=== PATIENT | male | born 1975 | race African-American/Black ===

== ENCOUNTER 2016-06-19 14:45 | Emergency (ER) | payer SELFPAY ==
--- NOTE | 2016-06-19 15:13 | ER Document Report ---
ED Medical Screen (RME) - General Stated Complaint: EYE PAIN Mode of Arrival: Ambulatory Information source: Patient Notes: Patient complains of left eye pain for the past 3 days. Patient states that he frequently works in situations where there is a possibility that something may have gotten into his eye. Patient denies any change in vision. Patient does not wear contact lenses or glasses. Patient reports drainage from eye I have greeted and performed a rapid initial assessment of this patient. A comprehensive ED assessment and evaluation of the patient, analysis of test results and completion of the medical decision making process will be conducted by additional ED providers. TRAVEL OUTSIDE OF THE [place] IN LAST 30 DAYS: No - Related Data Allergies/Adverse Reactions: No Known Allergies Allergy (Verified 06/19/16 15:10) Past Medical History Neurological Medical History: Reports: Hx Migraine Past Surgical History: Reports: Hx Oral Surgery - ALL UPPER TEETH REMOVED - Immunizations Immunizations up to date: Yes Hx Diphtheria, Pertussis, Tetanus Vaccination: Yes - 2010 Physical Exam - Vital signs Vitals: Temp Pulse Resp BP Pulse Ox 98.0 F 76 16 134/75 H 100 06/19/16 14:50 06/19/16 14:50 06/19/16 14:50 06/19/16 14:50 06/19/16 14:50 - HEENT Eyes: Tears Conjunctiva: Purulent discharge Course - Vital Signs Vital signs: Temp Pulse Resp BP Pulse Ox 98.0 F 76 16 134/75 H 100 06/19/16 14:50 06/19/16 14:50 06/19/16 14:50 06/19/16 14:50 06/19/16 14:50
[2016-06-19] MEDS ORDERED: TETRACAINE HCL 0.5% OPH SOLN 2 ML OS ONE (19:36)
[2016-06-19] MEDS ORDERED: ERYTHROMYCIN 0.5% OPH OINTMENT 3.5 GM (ER DISP) OP PRN (19:46)
[2016-06-19] MEDS ORDERED: CEPHALEXIN 500 MG CAPSULE PO ONE (19:46)
--- NOTE | 2016-06-19 19:48 | ER Document Report ---
ED Eye Complaint - General Chief Complaint: Eye Pain Stated Complaint: EYE PAIN Mode of Arrival: Ambulatory TRAVEL OUTSIDE OF THE [place] IN LAST 30 DAYS: No - Related Data Allergies/Adverse Reactions: No Known Allergies Allergy (Verified 06/19/16 15:10) Past Medical History - General Information source: Patient - Social History Smoking Status: Current Every Day Smoker Chew tobacco use (# tins/day): No Frequency of alcohol use: None Drug Abuse: None Family History: Reviewed & Not Pertinent Patient has suicidal ideation: No Patient has homicidal ideation: No Neurological Medical History: Reports: Hx Migraine Renal/ Medical History: Denies: Hx Peritoneal Dialysis Past Surgical History: Reports: Hx Oral Surgery - ALL UPPER TEETH REMOVED - Immunizations Immunizations up to date: Yes Hx Diphtheria, Pertussis, Tetanus Vaccination: Yes - 2010 Physical Exam - Vital signs Vitals: Temp Pulse Resp BP Pulse Ox 98.0 F 76 16 134/75 H 100 06/19/16 14:50 06/19/16 14:50 06/19/16 14:50 06/19/16 14:50 06/19/16 14:50 - HEENT Visual acuity- Right eye: 20/25 Visual acuity- Left eye: 20/25 Visual acuity- Both eyes: 20/20 Corrective lenses worn: No Course - Vital Signs Vital signs: Temp Pulse Resp BP Pulse Ox 98.0 F 76 16 134/75 H 100 06/19/16 14:50 06/19/16 14:50 06/19/16 14:50 06/19/16 14:50 06/19/16 14:50 Discharge - Discharge Clinical Impression: Conjunctivitis Condition: Stable Disposition: HOME, SELF-CARE Instructions: Conjunctivitis ([facility]), Opthalmology Prescriptions: Cephalexin Monohydrate [Keflex 500 mg Capsule] 500 mg PO QID #20 capsule Erythromycin Base [Erythromycin] 1 gm OP QID #1 unit Forms: Return to Work
--- NOTE | 2016-06-19 19:54 | ER Document Report ---
ED Eye Complaint - General Time seen by provider: 19:35 Mode of Arrival: Ambulatory Information source: Patient TRAVEL OUTSIDE OF THE [place] IN LAST 30 DAYS: No - HPI Patient complains to provider of: eye problem Associated symptoms: Other - See above <SELENE CONLEY - Last Filed: 06/20/16 00:50> <ANA LAURA HORN - Last Filed: 06/20/16 02:52> - General Chief Complaint: Eye Problem Stated Complaint: Eye problem Notes: Patient is a 41 year old male who presents to the emergency department complaining of eye problem onset 2-3 days ago. 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 Patient states his left eye is bothering him and complains of discharge and some pain on the eyelid that is aggravated by sweat. Patient denies wearing contacts. Patient requests work note. (SELENE CONLEY) - Related Data Allergies/Adverse Reactions: No Known Allergies Allergy (Verified 06/19/16 15:10) Past Medical History - General Information source: Patient - Social History Smoking Status: Current Every Day Smoker Chew tobacco use (# tins/day): No Frequency of alcohol use: None Drug Abuse: None Family History: Reviewed & Not Pertinent Patient has suicidal ideation: No Patient has homicidal ideation: No Neurological Medical History: Reports: Hx Migraine Past Surgical History: Reports: Hx Oral Surgery - ALL UPPER TEETH REMOVED - Immunizations Immunizations up to date: Yes Hx Diphtheria, Pertussis, Tetanus Vaccination: Yes - 2010 <SELENE CONLEY - Last Filed: 06/20/16 00:50> Review of Systems - Review of Systems Constitutional: No symptoms reported EENT: See HPI, Eye pain, Eye discharge Cardiovascular: No symptoms reported Respiratory: No symptoms reported Gastrointestinal: No symptoms reported Genitourinary: No symptoms reported Male Genitourinary: No symptoms reported Musculoskeletal: No symptoms reported Skin: No symptoms reported Hematologic/Lymphatic: No symptoms reported Neurological/Psychological: No symptoms reported -: Yes All other systems reviewed and negative <SELENE CONLEY - Last Filed: 06/20/16 00:50> Physical Exam - Vital signs Interpretation: Normal - General General appearance: Appears well, Alert - HEENT Head: Normocephalic, Atraumatic Eyes: Normal - no foreign body or fluorescein uptake Conjunctiva: Injected, Purulent discharge - left Visual acuity- Right eye: 20/25 Visual acuity- Left eye: 20/25 Visual acuity- Both eyes: 20/20 Corrective lenses worn: No - Respiratory Respiratory status: No respiratory distress - Extremities General upper extremity: Normal inspection General lower extremity: Normal inspection - Neurological Neuro grossly intact: Yes Cognition: Normal Orientation: AAOx4 Hammond Coma Scale Eye Opening: Spontaneous Hammond Coma Scale Verbal: Oriented Hammond Coma Scale Motor: Obeys Commands Anabell Coma Scale Total: 15 Speech: Normal - Psychological Associated symptoms: Normal affect, Normal mood - Skin Skin Temperature: Warm Skin Moisture: Dry Skin Color: Normal <SELENE CONLEY - Last Filed: 06/20/16 00:50> Course <SELENE CONLEY - Last Filed: 06/20/16 00:50> <ANA LAURA HORN - Last Filed: 06/20/16 02:52> - Re-evaluation Re-evalutation: 06/19/16 Patient with purulent discharge from left eye and injected. No foreign body. Patient will be started on erythromycin ointment and Keflex for some swelling of his upper left eyelid. Patient does not wear contacts. He is instructed to follow-up with ophthalmology return if he has any worsening or concerning symptoms. Vitals are stable. Understands and agrees with plan. Stable for discharge home. (ANA LAURA HORN) - Vital Signs Vital signs: Temp Pulse Resp BP Pulse Ox 98.8 F 52 L 18 125/77 96 06/19/16 20:23 06/19/16 20:23 06/19/16 20:23 06/19/16 20:23 06/19/16 20:23 Procedures - Eye Procedure Left Alcaine Drops Administered: Yes Fluorescein applied: Left Antibiotic Oinment/Drps Admin: Left eye <ANA LAURA HORN - Last Filed: 06/20/16 02:52> Discharge <SELENE CONLEY - Last Filed: 06/20/16 00:50> <ANA LAURA HORN - Last Filed: 06/20/16 02:52> - Discharge Clinical Impression: Conjunctivitis Qualifiers: Conjunctivitis type: unspecified Laterality: left Qualified Code(s): H10.9 - Unspecified conjunctivitis Condition: Stable Disposition: HOME, SELF-CARE Instructions: Conjunctivitis ([facility]), Opthalmology Prescriptions: Cephalexin Monohydrate [Keflex 500 mg Capsule] 500 mg PO QID #20 capsule Erythromycin Base [Erythromycin] 1 gm OP QID #1 unit Forms: Return to Work Scribe Attestation: 06/20/16 02:52 I personally performed the services described in the documentation, reviewed and edited the documentation which was dictated to the scribe in my presence, and it accurately records my words and actions. (ANA LAURA HORN) Scribe Documentation - Scribe Written by Burak:: burak Hui, 06/19/16, 2226 acting as scribe for :: Yamini <SELENE CONLEY - Last Filed: 06/20/16 00:50>
[2016-06-19 20:25] VITALS: BP 125/77
== END 2016-06-19 20:23 | disposition home or self-care (01) ==
LOC: ER 14:45
DX: H10.9 Unspecified conjunctivitis (principal); F17.200 Nicotine dependence, unspecified, uncomplicated
CPT/HCPCS: 99283

== ENCOUNTER 2017-04-18 07:47 | Emergency (ER) | payer OTHER ==
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
[2017-04-18 08:49] VITALS: BP 132/84
== END 2017-04-18 08:49 | disposition home or self-care (01) ==
LOC: ER 07:47
DX: S16.1XXA Strain of muscle, fascia and tendon at neck level, initial encounter (principal); M54.5 Low back pain; M54.9 Dorsalgia, unspecified; M54.2 Cervicalgia; V87.7XXA Person injured in collision between other specified motor vehicles (traffic), initial encounter; F17.210 Nicotine dependence, cigarettes, uncomplicated
CPT/HCPCS: 99283

== ENCOUNTER 2018-06-18 14:38 | Emergency (ER) | payer SELFPAY ==
[2018-06-18] MEDS ORDERED: ACETAMINOPHEN 325 MG TABLET PO ONE (16:07)
[2018-06-18] MEDS ORDERED: ONDANSETRON 4 MG TAB.RAPDIS PO ONE (16:07)
[2018-06-18] MEDS ORDERED: IBUPROFEN 800 MG TABLET PO ONE (16:08)
--- NOTE | 2018-06-18 16:09 | ER Document Report ---
ED Medical Screen (RME) - General Chief Complaint: Fever Stated Complaint: BODY ACHES,FEVER,CHILLS Time Seen by Provider: 06/18/18 16:00 Notes: 43-year-old male patient onset yesterday of fever, frontal headache, chills, body aches, coughing. Did not get a flu shot this year. Also has some epigastric pain. There is no nausea vomiting or diarrhea. He has been taking some aspirin but had not taken Tylenol. I have greeted and performed a rapid initial assessment of this patient. A comprehensive ED assessment and evaluation of the patient, analysis of test results and completion of the medical decision making process will be conducted by additional ED providers. TRAVEL OUTSIDE OF THE [place] IN LAST 30 DAYS: No - Related Data Allergies/Adverse Reactions: No Known Allergies Allergy (Verified 06/18/18 15:57) Past Medical History - Social History Chew tobacco use (# tins/day): No Frequency of alcohol use: None Drug Abuse: None Neurological Medical History: Reports: Hx Migraine Renal/ Medical History: Denies: Hx Peritoneal Dialysis Past Surgical History: Reports: Hx Oral Surgery - Immunizations Immunizations up to date: Yes Hx Diphtheria, Pertussis, Tetanus Vaccination: Yes - 2010 Physical Exam - Vital signs Vitals: Temp Pulse Resp BP Pulse Ox 101.1 F H 111 H 16 163/97 H 100 06/18/18 14:43 06/18/18 14:43 06/18/18 14:43 06/18/18 14:43 06/18/18 14:43 Course - Vital Signs Vital signs: Temp Pulse Resp BP Pulse Ox 101.1 F H 111 H 16 163/97 H 100 06/18/18 14:43 06/18/18 14:43 06/18/18 14:43 06/18/18 14:43 06/18/18 14:43
[2018-06-18 16:46] LABS: ABSOLUTE EOSINOPHILS # (AUTO) 0.1 10^3/uL (0.0-0.6); ABSOLUTE LYMPHOCYTES (AUTO) 0.8 10^3/uL (0.5-4.7); ABSOLUTE MONOCYTES (AUTO) 0.9 10^3/uL (0.1-1.4); ABSOLUTE NEUT (AUTO) 4.3 10^3/uL (1.7-8.2); BASOPHILS % (AUTO) 0.2 % (0-2); EOSINOPHILS % (AUTO) 2.1 % (0-6); HEMATOCRIT 46.9 % (37.9-51.0); HEMOGLOBIN 15.9 g/dL (13.5-17.0); LYMPHOCYTES % (AUTO) 12.9 % (13-45); MEAN CORPUSCULAR HEMOGLOBIN 31.5 pg (27.0-33.4); MEAN CORPUSCULAR HGB CONC 33.9 g/dL (32.0-36.0); MEAN CORPUSCULAR VOLUME 93 fl (80-97); MONOCYTES % (AUTO) 14.3 % (3-13); PLATELET COUNT 205 10^3/uL (150-450); RED BLOOD COUNT 5.05 10^6/uL (4.35-5.55); RED CELL DISTRIBUTION WIDTH 13.5 % (11.5-14.0); SEGMENTED NEUTROPHILS % (AUTO) 70.5 % (42-78); TOTAL CELLS COUNTED % (AUTO) 100 %; WHITE BLOOD COUNT 6.2 10^3/uL (4.0-10.5)
[2018-06-18 16:59] LABS: ALANINE AMINOTRANSFERASE 27 U/L (21-72); ALBUMIN 3.7 g/dL (3.5-5.0); ALKALINE PHOSPHATASE 50 U/L (38-126); ANION GAP 8 (5-19); ASPARTATE AMINO TRANSFERASE 22 U/L (17-59); BILIRUBIN,DIRECT 0.1 mg/dL (0.0-0.4); BILIRUBIN,TOTAL 0.3 mg/dL (0.2-1.3); BLOOD UREA NITROGEN 11 mg/dL (7-20); CALCIUM 9.2 mg/dL (8.4-10.2); CARBON DIOXIDE 27 mmol/L (22-30); CHLORIDE 105 mmol/L (98-107); GLUCOSE 75 mg/dL (75-110); LIPASE 63.6 U/L (23-300)
[2018-06-18 17:05] LABS: A TYPE INFLUENZA AG NEGATIVE (NEGATIVE); B INFLUENZA AG NEGATIVE (NEGATIVE)
--- NOTE | 2018-06-18 17:49 | ER Document Report ---
ED General - General Chief Complaint: Fever Stated Complaint: BODY ACHES,FEVER,CHILLS Time Seen by Provider: 06/18/18 16:00 Mode of Arrival: Ambulatory Information source: Patient Notes: Patient is a 43-year-old male who presents to the emergency department with chief complaints of generalized body aches, fever and sore throat. Patient denies any nausea or vomiting, reports mild epigastric pain that is not currently present. Patient denies any urinary frequency, dysuria or penile discharge. Denies getting a flu shot this year. Patient reports he has no past medical history and does not take any medications daily. TRAVEL OUTSIDE OF THE [place] IN LAST 30 DAYS: No - Related Data Allergies/Adverse Reactions: No Known Allergies Allergy (Verified 06/18/18 15:57) Past Medical History - General Information source: Patient - Social History Smoking Status: Current Every Day Smoker Chew tobacco use (# tins/day): No Frequency of alcohol use: None Drug Abuse: None Family History: Reviewed & Not Pertinent Patient has suicidal ideation: No Patient has homicidal ideation: No Neurological Medical History: Reports: Hx Migraine Renal/ Medical History: Denies: Hx Peritoneal Dialysis Past Surgical History: Reports: Hx Oral Surgery - Immunizations Immunizations up to date: Yes Hx Diphtheria, Pertussis, Tetanus Vaccination: Yes - 2010 Review of Systems - Review of Systems Constitutional: Chills, Fever EENT: Nose congestion Cardiovascular: denies: Chest pain, Palpitations, Syncope, Dizziness Respiratory: No symptoms reported Gastrointestinal: Abdominal pain - Epigastric pain, Nausea. denies: Diarrhea, Vomiting, Constipation Genitourinary: No symptoms reported. denies: Dysuria, Discharge, Frequency, Flank pain Male Genitourinary: No symptoms reported Musculoskeletal: Other - Generalized body aches Skin: No symptoms reported Physical Exam - Vital signs Vitals: Temp Pulse Resp BP Pulse Ox 101.1 F H 111 H 16 163/97 H 100 06/18/18 14:43 06/18/18 14:43 06/18/18 14:43 06/18/18 14:43 06/18/18 14:43 - Notes Notes: PHYSICAL EXAMINATION: GENERAL: Well-appearing, well-nourished and in no acute distress. HEAD: Atraumatic, normocephalic. EYES: Pupils equal round and reactive to light, extraocular movements intact, sclera anicteric, conjunctiva are normal. ENT: Nares patent, oropharynx clear without exudates. Moist mucous membranes. NECK: Normal range of motion, supple without lymphadenopathy LUNGS: Breath sounds clear to auscultation bilaterally and equal. No wheezes rales or rhonchi. HEART: Regular rate and rhythm without murmurs ABDOMEN: Soft, nondistended abdomen. Mild epigastric tenderness. No guarding, no rebound. No masses appreciated. Musculoskeletal: Normal range of motion, no pitting or edema. No cyanosis. NEUROLOGICAL: Cranial nerves grossly intact. Normal speech, normal gait. Norm al sensory, motor exams PSYCH: Normal mood, normal affect. SKIN: Warm, Dry, normal turgor, no rashes or lesions noted. Course - Re-evaluation Re-evalutation: Patient appears well, fever has resolved after administration of Tylenol and ibuprofen. Patient reporting that he is feeling better. Patient's physical examination is unremarkable. Patient was not able to provide a urine sample however he is not having any urinary symptoms and declines to stay any longer to provide one. CBC was unremarkable. CMP was also unremarkable other than mildly elevated creatinine of 1.5, patient has had a history of this same value several years ago. Patient's EKG reveals a sinus rhythm, rate of 81, QTc 409, normal axis, no ST segment elevations or depressions to suggest any ischemia. This was discussed with the patient. Surprisingly his influenza test was negative however his symptoms are most consistent with a viral illness. Encourage patient to push fluids and continue taking Tylenol or ibuprofen. I did discuss ED return precautions to include development of abdominal pain, vomiting, diarrhea or fever that is uncontrolled by medications. Patient verbalized understanding and agreement with plan. - Vital Signs Vital signs: Temp Pulse Resp BP Pulse Ox 98.3 F 75 18 124/75 100 06/18/18 19:23 06/18/18 19:23 06/18/18 19:23 06/18/18 19:23 06/18/18 19:23 - Laboratory Result Diagrams: 06/18/18 16:26 06/18/18 16:26 Laboratory results interpreted by me: 06/18/18 06/18/18 16:26 16:26 Lymphocytes % 12.9 L Monocytes % 14.3 H Creatinine 1.50 H Est GFR (Non-Af Amer) 51 L Total Protein 6.0 L Discharge - Discharge Clinical Impression: Flu-like symptoms Condition: Stable Disposition: HOME, SELF-CARE Instructions: Viral Syndrome ([facility]) Additional Instructions: Your symptoms are most consistent with a virus. Your blood counts and electrolytes are all within normal limits. Your influenza test today was negative. Push fluids, take Tylenol or ibuprofen for body aches and fever. Ple ase return to the emergency department if you develop worsening symptoms such as development of abdominal pain, fever that is not relieved by Tylenol or ibuprofen, persistent vomiting or diarrhea or any other symptom that is concerning to you. Forms: Return to Work
[2018-06-18 19:24] VITALS: BP 124/75
--- NOTE | 2018-06-18 22:59 | EKG REPORT ---
SEVERITY:- NORMAL ECG - SINUS RHYTHM : Confirmed by: Nellie Mcleod 18-Jun-2018 22:58:05
== END 2018-06-18 19:25 | disposition home or self-care (01) ==
LOC: ER 14:38
DX: R50.9 Fever, unspecified (principal); J02.9 Acute pharyngitis, unspecified; R10.13 Epigastric pain; F17.200 Nicotine dependence, unspecified, uncomplicated; R09.81 Nasal congestion
CPT/HCPCS: 93005; 99283; 36415; 87040; 83690; 85025; 80053; 87804; 93010; S0119

== ENCOUNTER 2018-08-05 07:40 | Emergency (ER) | payer SELFPAY ==
[2018-08-05] MEDS ORDERED: ASPIRIN 81 MG TABLET, CHEWABLE PO ONE (09:35)
[2018-08-05] MEDS ORDERED: METHOCARBAMOL 500 MG TABLET PO ONE (09:36)
--- NOTE | 2018-08-05 09:37 | ER Document Report ---
ED Medical Screen (RME) - General Chief Complaint: Chest Pain Stated Complaint: CHEST,BACK AND ARM PAIN Time Seen by Provider: 08/05/18 09:35 Mode of Arrival: Ambulatory Information source: Patient Notes: Patient presents complaining of left upper arm and shoulder pain for the past week. Patient states he was turning last night and had a sharp pain from the chest to the upper back area. Patient denies any cough nausea or vomiting. Patient does complain of pain with inspiration. Patient denies any significant medical history I have greeted and performed a rapid initial assessment of this patient. A comprehensive ED assessment and evaluation of the patient, analysis of test results and completion of the medical decision making process will be conducted by additional ED providers. TRAVEL OUTSIDE OF THE [place] IN LAST 30 DAYS: No - Related Data Allergies/Adverse Reactions: No Known Allergies Allergy (Verified 08/05/18 07:44) Past Medical History Neurological Medical History: Reports: Hx Migraine Renal/ Medical History: Denies: Hx Peritoneal Dialysis Past Surgical History: Reports: Hx Oral Surgery - Immunizations Immunizations up to date: Yes Hx Diphtheria, Pertussis, Tetanus Vaccination: Yes - 2010 Physical Exam - Vital signs Vitals: Temp Pulse Resp BP Pulse Ox 97.9 F 69 18 139/75 H 98 08/05/18 07:54 08/05/18 07:54 08/05/18 07:54 08/05/18 07:54 08/05/18 07:54 - Cardiovascular Rhythm: Regular Heart sounds: S1 appreciated, S2 appreciated - Back Back: Tender - Tenderness with palpation of left trapezius muscle Course - Vital Signs Vital signs: Temp Pulse Resp BP Pulse Ox 97.9 F 69 18 139/75 H 98 08/05/18 07:54 08/05/18 07:54 08/05/18 07:54 08/05/18 07:54 08/05/18 07:54
[2018-08-05 10:06] LABS: ABSOLUTE EOSINOPHILS # (AUTO) 0.5 10^3/uL (0.0-0.6); ABSOLUTE LYMPHOCYTES (AUTO) 1.7 10^3/uL (0.5-4.7); ABSOLUTE MONOCYTES (AUTO) 0.4 10^3/uL (0.1-1.4); ABSOLUTE NEUT (AUTO) 3.2 10^3/uL (1.7-8.2); BASOPHILS % (AUTO) 0.3 % (0-2); EOSINOPHILS % (AUTO) 7.8 % (0-6); HEMATOCRIT 44.7 % (37.9-51.0); HEMOGLOBIN 14.9 g/dL (13.5-17.0); LYMPHOCYTES % (AUTO) 28.8 % (13-45); MEAN CORPUSCULAR HEMOGLOBIN 31.1 pg (27.0-33.4); MEAN CORPUSCULAR HGB CONC 33.3 g/dL (32.0-36.0); MEAN CORPUSCULAR VOLUME 94 fl (80-97); MONOCYTES % (AUTO) 7.2 % (3-13); PLATELET COUNT 233 10^3/uL (150-450); RED BLOOD COUNT 4.77 10^6/uL (4.35-5.55); RED CELL DISTRIBUTION WIDTH 13.9 % (11.5-14.0); SEGMENTED NEUTROPHILS % (AUTO) 55.9 % (42-78); TOTAL CELLS COUNTED % (AUTO) 100 %; WHITE BLOOD COUNT 5.8 10^3/uL (4.0-10.5)
--- NOTE | 2018-08-05 10:07 | RADIOLOGY REPORT (SQ) ---
EXAM DESCRIPTION: CHEST 2 VIEWS COMPLETED DATE/TIME: 08/05/2018 9:54 am REASON FOR STUDY: cp, upper back pain COMPARISON: None. EXAM PARAMETERS: NUMBER OF VIEWS: two views TECHNIQUE: Digital Frontal and Lateral radiographic views of the chest acquired. RADIATION DOSE: NA LIMITATIONS: none FINDINGS: LUNGS AND PLEURA: No opacities, masses or pneumothorax. No pleural effusion. MEDIASTINUM AND HILAR STRUCTURES: No masses or contour abnormalities. HEART AND VASCULAR STRUCTURES: Heart normal size. No evidence for failure. BONES: No acute findings. HARDWARE: None in the chest. OTHER: No other significant finding. IMPRESSION: NO ACUTE RADIOGRAPHIC FINDING IN THE CHEST. TECHNICAL DOCUMENTATION: JOB ID: [id number] [employer]- All Rights Reserved Reading location - IP/workstation name: [email or web address]
[2018-08-05 10:23] LABS: ALANINE AMINOTRANSFERASE 32 U/L (21-72); ALBUMIN 3.3 g/dL (3.5-5.0); ALKALINE PHOSPHATASE 60 U/L (38-126); ASPARTATE AMINO TRANSFERASE 22 U/L (17-59); BILIRUBIN,DIRECT 0.2 mg/dL (0.0-0.4); BILIRUBIN,TOTAL 0.3 mg/dL (0.2-1.3); BLOOD UREA NITROGEN 12 mg/dL (7-20); CALCIUM 9.2 mg/dL (8.4-10.2); CREATINE KINASE 246 U/L (55-170); GLUCOSE 71 mg/dL (75-110); LIPASE 129.8 U/L (23-300); TOTAL PROTEIN 5.6 g/dL (6.3-8.2)
[2018-08-05 10:28] LABS: ANION GAP 5 (5-19); CARBON DIOXIDE 31 mmol/L (22-30); CHLORIDE 108 mmol/L (98-107); SODIUM 143.6 mmol/L (137-145)
[2018-08-05 10:29] LABS: POTASSIUM 4.3 mmol/L (3.6-5.0)
[2018-08-05 10:32] LABS: CREATINE KINASE MB 1.77 ng/mL (<4.55); TROPONIN I < 0.012 ng/mL
[2018-08-05 14:08] VITALS: BP 134/92
--- NOTE | 2018-08-05 14:19 | ER Document Report ---
ED General - General Chief Complaint: Chest Pain Stated Complaint: CHEST,BACK AND ARM PAIN Time Seen by Provider: 08/05/18 09:35 Primary Care Provider: [facility] [Provider Group] - Follow up as needed [facility] [Provider Group] - Follow up as needed Mode of Arrival: Ambulatory Information source: Patient Notes: Patient presents complaining of left upper arm pain for the past week. Patient states that he was turning in bed last night and felt a sharp pain to the upper back and chest area. Patient states pain is worse with movement. Patient states that is able to massage the area does have some improvement of his pain symptoms. Patient denies any cough or cold symptoms. No nausea or vomiting. Patient does complain of pain with deep inspiration. TRAVEL OUTSIDE OF THE [place] IN LAST 30 DAYS: No - HPI Onset: Yesterday Onset/Duration: Waxing and waning Quality of pain: Sharp Pain Level: 4 Associated symptoms: Chest pain. 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 denies: Fever EENT: No symptoms reported Cardiovascular: Chest pain. denies: Dizziness, Lightheaded Respiratory: Hurts to breathe. denies: Cough, Short of breath Gastrointestinal: No symptoms reported. denies: Abdominal pain, Nausea, Vomiting Genitourinary: No symptoms reported Male Genitourinary: No symptoms reported Musculoskeletal: Back pain Skin: No symptoms reported Hematologic/Lymphatic: No symptoms reported Neurological/Psychological: No symptoms reported Physical Exam - Vital signs Vitals: Temp Pulse Resp BP Pulse Ox 97.9 F 69 18 139/75 H 98 08/05/18 07:54 08/05/18 07:54 08/05/18 07:54 08/05/18 07:54 08/05/18 07:54 - General General appearance: Appears well, Alert In distress: None - HEENT Head: Normocephalic Eyes: Normal Conjunctiva: Normal Nasal: Normal Mouth/Lips: Normal Neck: Normal, Supple. No: Lymphadenopathy - Respiratory Respiratory status: No respiratory distress Chest status: Tender - Left upper anterior chest wall tenderness Breath sounds: Normal Chest palpation: Tender - Pain to chest reproducible with palpation - Cardiovascular Rhythm: Regular Heart sounds: S1 appreciated, S2 appreciated Murmur: No - Abdominal Inspection: Normal Tenderness: Nontender - Back Back: Tender - Left trapezius muscle tenderness. No: Deformity/step-off, Vertebra tenderness - Extremities General upper extremity: Normal inspection, Nontender, Normal ROM. No: Edema General lower extremity: Normal inspection, Nontender, Normal ROM. No: Edema - Neurological Neuro grossly intact: Yes Cognition: Normal Orientation: AAOx4 [place] Coma Scale Eye Opening: Spontaneous [place] Coma Scale Verbal: Oriented [place] Coma Scale Motor: Obeys Commands [place] Coma Scale Total: 15 - Psychological Associated symptoms: Normal affect, Normal mood - Skin Skin Temperature: Warm Skin Moisture: Dry Skin Color: Normal Course - Re-evaluation Re-evalutation: 08/05/18 14:15 Patient reports that his pain is improved after the muscle relaxer. Patient is feeling better and is requesting to be discharged at this time. Patient with negative troponin at this time and pain to the left upper chest area has been there for greater than 12 hours. Patient with a heart score of 2, patient PERC negative. Consulted with Dr. Billy regarding patient presentation, reviewed diagnostic results as well as EKG, agrees with discharge plan of care at this time. The patient has atypical chest pain as the patient's chest pain is not suggestive of pulmonary embolus, cardiac ischemia, aortic dissection, or other serious etiology. Given the extremely low risk of these diagnoses for the test in evaluation for these possibilities does not appear to be indicated at this time. Patient has been instructed to return if the symptoms worsen or change in any way. - Vital Signs Vital signs: Temp Pulse Resp BP Pulse Ox 98.0 F 58 L 16 134/92 H 98 08/05/18 14:03 08/05/18 14:03 08/05/18 14:03 08/05/18 14:03 08/05/18 14:03 - Laboratory Result Diagrams: 08/05/18 09:45 08/05/18 09:45 Laboratory results interpreted by me: 08/05/18 08/05/18 09:45 09:45 Eosinophils % 7.8 H Chloride 108 H Carbon Dioxide 31 H Creatinine 1.38 H Est GFR (Non-Af Amer) 56 L Glucose 71 L Creatine Kinase 246 H Total Protein 5.6 L Albumin 3.3 L 08/05/18 14:16 Labs- Entire Visit 08/05/18 08/05/18 08/05/18 09:45 09:45 09:45 WBC 5.8 RBC 4.77 Hgb 14.9 Hct 44.7 MCV 94 MCH 31.1 MCHC 33.3 RDW 13.9 Plt Count 233 Seg Neutrophils % 55.9 Lymphocytes % 28.8 Monocytes % 7.2 Eosinophils % 7.8 H Basophils % 0.3 Absolute Neutrophils 3.2 Absolute Lymphocytes 1.7 Absolute Monocytes 0.4 Absolute Eosinophils 0.5 Absolute Basophils 0.0 Sodium 143.6 Potassium 4.3 Chloride 108 H Carbon Dioxide 31 H Anion Gap 5 BUN 12 Creatinine 1.38 H Est GFR ( Amer) > 60 Est GFR (Non-Af Amer) 56 L Glucose 71 L Calcium 9.2 Total Bilirubin 0.3 Direct Bilirubin 0.2 Neonat Total Bilirubin Not Reportable Neonat Direct Bilirubin Not Reportable Neonat Indirect Bili Not Reportable AST 22 ALT 32 Alkaline Phosphatase 60 Creatine Kinase 246 H CK-MB (CK-2) 1.77 Troponin I < 0.012 Total Protein 5.6 L Albumin 3.3 L Lipase 129.8 - Diagnostic Test Radiology reviewed: Reports reviewed - EKG Interpretation by Me EKG shows normal: Sinus rhythm Rate: Normal When compared to previous EKG there are: No significant change Discharge - Discharge Clinical Impression: Chest wall pain, Upper back pain, Renal function test abnormality Condition: Stable Disposition: HOME, SELF-CARE Instructions: Chest Wall Pain ([facility]), Muscle Relaxers ([facility]), Muscle Strain ([facility]) Additional Instructions: Return immediately for any new or worsening symptoms Followup with your primary care provider, call tomorrow to make a followup appointment Increase oral fluids and stay well-hydrated Your renal function test was slightly abnormal today. Follow-up with the primary doctor to further evaluate this finding. Prescriptions: Cyclobenzaprine HCl [Flexeril 10 Mg Tablet] 10 mg PO TID #15 tablet Forms: Smoking Cessation Education, Return to Work Referrals: [facility] [Provider Group] - Follow up as needed [facility] [Provider Group] - Follow up as needed
--- NOTE | 2018-08-05 19:40 | EKG REPORT ---
SEVERITY:- BORDERLINE ECG - SINUS RHYTHM BORDERLINE T WAVE ABNORMALITIES : Confirmed by: Kayli Hernández MD 05-Aug-2018 19:39:19
== END 2018-08-05 14:24 | disposition home or self-care (01) ==
LOC: ER 07:40
DX: R07.89 Other chest pain (principal); R07.1 Chest pain on breathing; M54.89 Other dorsalgia; R94.4 Abnormal results of kidney function studies; M79.622 Pain in left upper arm; F17.200 Nicotine dependence, unspecified, uncomplicated
CPT/HCPCS: 36415; 71046; 80053; 82550; 82553; 83690; 84484; 85025; 93005; 93010; 99284

== ENCOUNTER 2018-11-30 14:40 | Emergency (ER) | payer SELFPAY ==
[2018-11-30] MEDS ORDERED: ASPIRIN 81 MG TABLET, CHEWABLE PO ONE (14:58)
--- NOTE | 2018-11-30 15:00 | ER Document Report ---
ED Medical Screen (RME) - General Chief Complaint: Chest Pain Stated Complaint: CHEST PAIN Time Seen by Provider: 11/30/18 14:57 Mode of Arrival: Ambulatory Information source: Patient Notes: 43-year-old male presented to ED for complaint of chest pain to the center of his chest through to his back with a sore throat from coughing. He is alert oriented respirations regular and unlabored speaking in full sentences. He states he normally smokes a pack a day but he has not smoked much at all for the last few days. Patient is alert oriented respirations regular and unlabored speaking in full sentences walks with even steady gait. I have greeted and performed a rapid initial assessment of this patient. A comprehensive ED assessment and evaluation of the patient, analysis of test results and completion of medical decision making process will be conducted by an additional ED providers. TRAVEL OUTSIDE OF THE [place] IN LAST 30 DAYS: No - Related Data Allergies/Adverse Reactions: No Known Allergies Allergy (Verified 11/30/18 14:40) Past Medical History Neurological Medical History: Reports: Hx Migraine Renal/ Medical History: Denies: Hx Peritoneal Dialysis Past Surgical History: Reports: Hx Oral Surgery - Immunizations Immunizations up to date: Yes Hx Diphtheria, Pertussis, Tetanus Vaccination: Yes - 2010 Physical Exam - Vital signs Vitals: Temp Pulse Resp BP Pulse Ox 98.5 F 103 H 18 151/98 H 97 11/30/18 14:49 11/30/18 14:49 11/30/18 14:49 11/30/18 14:49 11/30/18 14:49 Course - Vital Signs Vital signs: Temp Pulse Resp BP Pulse Ox 98.5 F 103 H 18 151/98 H 97 11/30/18 14:49 11/30/18 14:49 11/30/18 14:49 11/30/18 14:49 11/30/18 14:49
[2018-11-30 15:47] LABS: ABSOLUTE EOSINOPHILS # (AUTO) 0.7 10^3/uL (0.0-0.6); ABSOLUTE LYMPHOCYTES (AUTO) 1.9 10^3/uL (0.5-4.7); ABSOLUTE MONOCYTES (AUTO) 0.9 10^3/uL (0.1-1.4); ABSOLUTE NEUT (AUTO) 9.3 10^3/uL (1.7-8.2); BASOPHILS % (AUTO) 0.2 % (0-2); EOSINOPHILS % (AUTO) 5.4 % (0-6); HEMATOCRIT 46.5 % (37.9-51.0); HEMOGLOBIN 15.5 g/dL (13.5-17.0); LYMPHOCYTES % (AUTO) 14.6 % (13-45); MEAN CORPUSCULAR HEMOGLOBIN 30.7 pg (27.0-33.4); MEAN CORPUSCULAR HGB CONC 33.4 g/dL (32.0-36.0); MEAN CORPUSCULAR VOLUME 92 fl (80-97); MONOCYTES % (AUTO) 7.1 % (3-13); PLATELET COUNT 220 10^3/uL (150-450); RED BLOOD COUNT 5.04 10^6/uL (4.35-5.55); RED CELL DISTRIBUTION WIDTH 13.3 % (11.5-14.0); SEGMENTED NEUTROPHILS % (AUTO) 72.7 % (42-78); TOTAL CELLS COUNTED % (AUTO) 100 %; WHITE BLOOD COUNT 12.8 10^3/uL (4.0-10.5)
[2018-11-30 15:51] LABS: APPEARANCE,URINE CLEAR; BILIRUBIN,URINE NEGATIVE (NEGATIVE); COLOR,URINE YELLOW; GLUCOSE, URINE NEGATIVE (NEGATIVE); KETONES,URINE NEGATIVE (NEGATIVE); LEUKOCYTE ESTERASE,URINE NEGATIVE (NEGATIVE); NITRITE,URINE NEGATIVE (NEGATIVE); PROTEIN,URINE NEGATIVE (NEGATIVE); URINE SPECIFIC GRAVITY 1.026; UROBILINOGEN,URINE NEGATIVE mg/dL (<2.0)
[2018-11-30] MEDS ORDERED: IPRATROPIUM/ALBUTEROL 0.5-2.5 MG/3 ML AMPUL NEB ONE ×2 (15:58→16:03)
--- NOTE | 2018-11-30 15:59 | RADIOLOGY REPORT (SQ) ---
EXAM DESCRIPTION: CHEST 2 VIEWS COMPLETED DATE/TIME: 11/30/2018 3:51 pm REASON FOR STUDY: CHEST PAIN COMPARISON: 08/05/2018 EXAM PARAMETERS: NUMBER OF VIEWS: two views TECHNIQUE: Digital Frontal and Lateral radiographic views of the chest acquired. RADIATION DOSE: NA LIMITATIONS: none FINDINGS: LUNGS AND PLEURA: No opacities, masses or pneumothorax. No pleural effusion. MEDIASTINUM AND HILAR STRUCTURES: No masses or contour abnormalities. HEART AND VASCULAR STRUCTURES: Heart normal size. No evidence for failure. BONES: No acute findings. HARDWARE: None in the chest. OTHER: No other significant finding. IMPRESSION: NO ACUTE RADIOGRAPHIC FINDING IN THE CHEST. TECHNICAL DOCUMENTATION: JOB ID: [id number] [employer]- All Rights Reserved Reading location - IP/workstation name: [email or web address]
[2018-11-30 16:00] LABS: ALBUMIN 4.4 g/dL (3.5-5.0); ALKALINE PHOSPHATASE 59 U/L (38-126); ANION GAP 7 (5-19); ASPARTATE AMINO TRANSFERASE 26 U/L (17-59); BILIRUBIN,DIRECT 0.2 mg/dL (0.0-0.4); BILIRUBIN,TOTAL 0.5 mg/dL (0.2-1.3); BLOOD UREA NITROGEN 13 mg/dL (7-20); CALCIUM 9.9 mg/dL (8.4-10.2); CARBON DIOXIDE 30 mmol/L (22-30); CHLORIDE 103 mmol/L (98-107); CREATINE KINASE 482 U/L (55-170); GLUCOSE 90 mg/dL (75-110)
[2018-11-30] MEDS ORDERED: BENZONATATE 100 MG CAPSULE PO ONE ×2 (16:01→16:20)
--- NOTE | 2018-11-30 16:02 | ER Document Report ---
ED General - General Chief Complaint: Chest Pain Stated Complaint: CHEST PAIN Time Seen by Provider: 11/30/18 14:57 Mode of Arrival: Ambulatory Information source: Patient Notes: This 43-year-old male presents emergency department with complaints of cough since last Thursday. Reports he coughing up a little bit of product does not know what color it is. Reports had a cough so hard he has been vomiting afterwards. Reports it is hurting in the center of his chest due to cough. Rad iates to his back. Denies fever denies diarrhea. Denies history of cardiac disease. Reports he smokes probably a pack and a half a day but cut down since he had this cough. TRAVEL OUTSIDE OF THE [place] 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 Family History: Reviewed & Not Pertinent Patient has suicidal ideation: No Patient has homicidal ideation: No Neurological Medical History: Reports: Hx Migraine Renal/ Medical History: Denies: Hx Peritoneal Dialysis Past Surgical History: Reports: Hx Oral Surgery, Hx Orthopedic Surgery - Immunizations Immunizations up to date: Yes Hx Diphtheria, Pertussis, Tetanus Vaccination: Yes - 2010 Review of Systems - Review of Systems Notes: Review HPI for review of systems., All other systems negative Physical Exam - Vital signs Vitals: Temp Pulse Resp BP Pulse Ox 98.5 F 103 H 18 151/98 H 97 11/30/18 14:49 11/30/18 14:49 11/30/18 14:49 11/30/18 14:49 11/30/18 14:49 - General General appearance: Alert In distress: None - HEENT Head: Normocephalic Eyes: Normal Conjunctiva: Normal Extraocular movements intact: Yes Pupils: PERRL Ears: Normal External canal: Normal Tympanic membrane: Normal Mouth/Lips: Normal Mucous membranes: Normal, Moist Pharynx: Normal. No: Erythema Neck: Normal, Supple. No: Lymphadenopathy - Respiratory Respiratory status: No respiratory distress Chest status: Nontender Breath sounds: Productive cough, Rhonchi Chest palpation: Normal - Cardiovascular Rhythm: Regular Heart sounds: Normal auscultation Murmur: No - Abdominal Inspection: Normal Distension: No distension Bowel sounds: Normal Tenderness: Nontender - Back Back: Normal - Extremities General upper extremity: Normal ROM General lower extremity: Normal ROM - Neurological Neuro grossly intact: Yes Cognition: Normal Orientation: AAOx4 [place] Coma Scale Eye Opening: Spontaneous [place] Coma Scale Verbal: Oriented [place] Coma Scale Motor: Obeys Commands [place] Coma Scale Total: 15 Speech: Normal - Psychological Associated symptoms: Normal affect, Normal mood - Skin Skin Temperature: Warm Skin Moisture: Dry Skin Color: Normal Course - Re-evaluation Re-evalutation: 11/30/18 17:58 This 43-year-old male presents emergency department with complaints of cough hurts his chest when he coughs. Denies chest pain. Denies fever reports he has vomited after coughing so hard. Patient does admit to smoking a pack and a half a day. Also reports he works outside sweats a lot. He reports he drinks fluids but apparently he does not drink enough because when he donates plasma they tell him that he is dehydrated. Chest x-ray is negative for pneumonia. Patient respiratory rate even unlabored but lots of rhonchi. After first DuoNeb patient opened up a little noted wheeze. He reports he feels a lot better. CK is 482. Patient also positive for cocaine. He denies using cocaine. Reports is possible that his cigarette laced with something. 11/30/18 15:17 11/30/18 15:17 MCV 92 fl (80-97) 11/30/18 15:17 MCV Cancelled 11/30/18 15:17 MCH 30.7 pg (27.0-33.4) 11/30/18 15:17 MCH Cancelled 11/30/18 15:17 MCHC 33.4 g/dL (32.0-36.0) 11/30/18 15:17 MCHC Cancelled 11/30/18 15:17 RDW 13.3 % (11.5-14.0) 11/30/18 15:17 RDW Cancelled 11/30/18 15:17 Seg Neutrophils % 72.7 % (42-78) 11/30/18 15:17 Seg Neutrophils % Cancelled 11/30/18 15:17 Chloride 103 mmol/L (98-107) 11/30/18 15:17 Chloride Cancelled 11/30/18 15:17 Carbon Dioxide 30 mmol/L (22-30) 11/30/18 15:17 Carbon Dioxide Cancelled 11/30/18 15:17 Anion Gap 7 (5-19) 11/30/18 15:17 Anion Gap Cancelled 11/30/18 15:17 Est GFR ( Amer) > 60 (>60) 11/30/18 15:17 Est GFR ( Amer) Cancelled 11/30/18 15:17 Est GFR (Non-Af Amer) Cancelled 11/30/18 15:17 Glucose 90 mg/dL (75-110) 11/30/18 15:17 Glucose Cancelled 11/30/18 15:17 Calcium 9.9 mg/dL (8.4-10.2) 11/30/18 15:17 Calcium Cancelled 11/30/18 15:17 Total Bilirubin 0.5 mg/dL (0.2-1.3) 11/30/18 15:17 Total Bilirubin Cancelled 11/30/18 15:17 AST 26 U/L (17-59) 11/30/18 15:17 AST Cancelled 11/30/18 15:17 Alkaline Phosphatase 59 U/L (38-126) 11/30/18 15:17 Alkaline Phosphatase Cancelled 11/30/18 15:17 Total Protein 7.0 g/dL (6.3-8.2) 11/30/18 15:17 Total Protein Cancelled 11/30/18 15:17 Albumin 4.4 g/dL (3.5-5.0) 11/30/18 15:17 Albumin Cancelled 11/30/18 15:17 Lipase 84.0 U/L (23-300) 11/30/18 15:17 Lipase Cancelled 11/30/18 15:17 Urine Color Cancelled 11/30/18 15:17 Urine Color YELLOW 11/30/18 15:17 Urine Appearance CLEAR 11/30/18 15:17 Urine Appearance Cancelled 11/30/18 15:17 Urine pH 7.0 (5.0-9.0) 11/30/18 15:17 Urine pH Cancelled 11/30/18 15:17 Ur Specific [place] 1.026 11/30/18 15:17 Ur Specific [place] Cancelled 11/30/18 15:17 Urine Protein Cancelled 11/30/18 15:17 Urine Protein NEGATIVE mg/dL (NEGATIVE) 11/30/18 15:17 Urine Glucose (UA) Cancelled 11/30/18 15:17 Urine Glucose (UA) NEGATIVE mg/dL (NEGATIVE) 11/30/18 15:17 Urine Ketones Cancelled 11/30/18 15:17 Urine Ketones NEGATIVE mg/dL (NEGATIVE) 11/30/18 15:17 Urine Blood Cancelled 11/30/18 15:17 Urine Blood NEGATIVE (NEGATIVE) 11/30/18 15:17 Urine Nitrite Cancelled 11/30/18 15:17 Urine Nitrite NEGATIVE (NEGATIVE) 11/30/18 15:17 Ur Leukocyte Esterase Cancelled 11/30/18 15:17 Ur Leukocyte Esterase NEGATIVE (NEGATIVE) 11/30/18 15:17 Urine WBC (Auto) 1 /HPF 11/30/18 15:17 Urine WBC (Auto) Cancelled 11/30/18 15:17 Urine RBC (Auto) 0 /HPF 11/30/18 15:17 Urine RBC (Auto) Cancelled 11/30/18 15:17 11/30/18 11/30/18 11/30/18 15:17 15:17 15:17 Creatine Kinase 482 H Cancelled CK-MB (CK-2) 2.89 Troponin I < 0.012 11/30/18 15:17 Creatine Kinase CK-MB (CK-2) Cancelled Troponin I Cancelled Chest X-Ray 11/30/18 00:00 IMPRESSION: NO ACUTE RADIOGRAPHIC FINDING IN THE CHEST. 11/30/18 19:46 Labs unremarkable except CK 482. He was instructed on this. He reports CK has been high in the past. He received a liter of normal saline. Also drinking p.o. fluids. Patient sounds good, no active coughing, reports he feels much better. Instructed on medications, importance of quit smoking and staying well hydrated. Her verbalized understanding to all information - Vital Signs Vital signs: Temp Pulse Resp BP Pulse Ox 98.5 F 103 H 18 148/93 H 97 11/30/18 14:49 11/30/18 14:49 11/30/18 18:21 11/30/18 18:21 11/30/18 18:21 - Laboratory Result Diagrams: 11/30/18 15:17 11/30/18 15:17 Laboratory results interpreted by me: 11/30/18 11/30/18 15:17 15:17 WBC 12.8 H Absolute Neuts (auto) 9.3 H Absolute Eos (auto) 0.7 H Creatinine 1.44 H Est GFR (MDRD) Non-Af 53 L Creatine Kinase 482 H - Diagnostic Test Radiology reviewed: Image reviewed, Reports reviewed Discharge - Discharge Clinical Impression: Cough, Tobacco abuse Condition: Stable Disposition: HOME, SELF-CARE Instructions: Bronchodilators ([facility]), Intravenous (IV) Fluids ([facility]), Stop Smoking ([facility]), Steroid Medication, Tessalon Perles ([facility]) Additional Instructions: *You have been evaluated for a cough , tobacco abuse *Take medication as prescribed, use inhaler as prescribed *Increase fluids, Quit smoking! *Monitor your temperature, take Tylenol as indicated *Follow up with a primary care provider within one week for recheck *Return to ED for increasing fever, cough, worsening condition, changes, needs, difficulty breathing Monitor your blood pressure. Your blood pressure was elevated today. This may be because you were anxious, in pain or because you need medication. It is important to follow up with your primary care provider for full evaluation. Prescriptions: Prednisone [Deltasone 10 mg Tablet] 10 mg PO ASDIR PRN #21 tablet PRN Reason: Benzonatate [Tessalon Perles 100 mg Capsule] 100 mg PO ASDIR PRN #20 capsule PRN Reason: Forms: Elevated Blood Pressure, Smoking Cessation Education, Return to Work
[2018-11-30 16:06] LABS: URINE AMPHETAMINES SCREEN NEGATIVE; URINE BARBITURATES SCREEN NEGATIVE; URINE BENZODIAZEPINES SCREEN NEGATIVE; URINE MARIJUANA (THC) SCREEN NEGATIVE; URINE METHADONE SCREEN NEGATIVE; URINE PHENCYCLIDINE SCREEN NEGATIVE
[2018-11-30 16:12] LABS: CREATINE KINASE MB 2.89 ng/mL (<4.55)
[2018-11-30 16:22] LABS: URINE COCAINE SCREEN UNCONFIRMED POSITIVE
[2018-11-30 16:23] LABS: TROPONIN I < 0.012 ng/mL
[2018-11-30] MEDS ORDERED: ALBUTEROL SULFATE 0.083% NEB 2.5 MG/3 ML AMPUL NEB ONE ×2 (17:09→17:50)
[2018-11-30] MEDS ORDERED: PREDNISONE 20 MG TABLET PO ONE (17:09)
[2018-11-30 17:35] LABS: INTERNATIONAL RATION (INR) 1.07
[2018-11-30 17:36] LABS: PARTIAL THROMBOPLASTIN TIME 28.2 SEC (23.5-35.8)
[2018-11-30] MEDS ORDERED: NORMAL SALINE 1000 ML 1,000 ML IV ONE (17:50)
[2018-11-30] MEDS ORDERED: ALBUTEROL SULFATE HFA (90 MCG/PUFF) 8 GM MDI (1 MDI/ER DISP) IH ONE (18:11)
[2018-11-30 19:55] VITALS: BP 159/89
== END 2018-11-30 19:51 | disposition home or self-care (01) ==
LOC: ER 14:40
DX: R05 Cough (principal); R07.9 Chest pain, unspecified; F17.200 Nicotine dependence, unspecified, uncomplicated
CPT/HCPCS: 94640 ×2; 99283; 96360; 36415; 82553; 82550; 83690; 85025; 85610; 85730; 80053; 81001; 84484; 80307; 71046; J7512; J7030; J3490; J7620

== ENCOUNTER 2019-01-10 17:33 | Emergency (ER) | payer SELFPAY ==
[2019-01-10 17:43] VITALS: BP 142/96
[2019-01-10] MEDS ORDERED: OXYCODONE-ACETAMINOPHEN 5-325 MG TABLET PO ONE (18:03)
--- NOTE | 2019-01-10 18:06 | ER Document Report ---
ED Medical Screen (RME) - General Chief Complaint: Abscess Stated Complaint: JAW PAIN Time Seen by Provider: 01/10/19 18:03 Notes: Patient is a 43-year-old male presents to the emergency department with abscess to the right side of his face. Patient voices he thinks it was an ingrown hair. States he has also been "picking at it." Patient voices he knows he has bad dentition but does not feel as though this is from a toothache. States this is from something on his face that he was "picking out." Patient's denying any fevers or history of abscess or MSRA infections. GENERAL: Alert, interacts well. Rocking back and forth in the chair, states "I am in so much pain." SKIN: Warm, dry, normal turgor. Swelling noted right side of face, indurated area noted, slight fluctuance. I have greeted and performed a rapid initial assessment of this patient. A comprehensive ED assessment and evaluation of the patient, analysis of test results and completion of the medical decision making process will be conducted by additional ED providers. I have specifically instructed the patient or family members with the patient to immediately return to any nursing staff should anything change in the patient's condition or with their chief complaint. This medical record was dictated with voice recognizing software. There may be grammatical, syntax errors that are unintended. TRAVEL OUTSIDE OF THE [place] IN LAST 30 DAYS: No - Related Data Allergies/Adverse Reactions: No Known Allergies Allergy (Verified 11/30/18 14:40) Past Medical History Neurological Medical History: Reports: Hx Migraine Renal/ Medical History: Denies: Hx Peritoneal Dialysis Past Surgical History: Reports: Hx Oral Surgery, Hx Orthopedic Surgery - Immunizations Immunizations up to date: Yes Hx Diphtheria, Pertussis, Tetanus Vaccination: Yes - 2010 Physical Exam - Vital signs Vitals: Temp Pulse Resp BP Pulse Ox 99.7 F 87 20 142/96 H 99 01/10/19 17:42 01/10/19 17:42 01/10/19 17:42 01/10/19 17:42 01/10/19 17:42 Course - Vital Signs Vital signs: Temp Pulse Resp BP Pulse Ox 99.7 F 87 20 142/96 H 99 01/10/19 17:42 01/10/19 17:42 01/10/19 17:42 01/10/19 17:42 01/10/19 17:42
[2019-01-10] MEDS ORDERED: LIDOCAINE 1%/EPINEPHRINE INJ 20 ML VIAL INJ ONE (18:55)
[2019-01-10] MEDS ORDERED: DIPH/PERTUSS(ACELL)/TETANUS VAC/PF 0.5 ML SYR (>=10YO) IM ONE (19:20)
--- NOTE | 2019-01-10 20:10 | ER Document Report ---
ED Skin Rash/Insect Bite/Abscs - General Chief Complaint: Abscess Stated Complaint: JAW PAIN Time Seen by Provider: 01/10/19 18:03 Mode of Arrival: Ambulatory Information source: Patient TRAVEL OUTSIDE OF THE [place] IN LAST 30 DAYS: No - HPI Notes: Patient presents with right facial pain. This pain is is just adjacent to the right corner of the mouth. He states that he feels it is an ingrown hair. He states that it is very painful. He states the pain is severe. It is constant. It is worse if touched and better if left alone. It is been there for 3 to 4 days. No fever sweats or chills. No other rashes or lesions. He states he has had previous abscesses. He denies any history of MRSA. No recent trauma to the face. He states he has been picking at a sore in this area which he felt was an ingrown hair. He denies any dental problems. No nasal problems. The pain does radiate to the right side of his face and gives him a headache. - Related Data Allergies/Adverse Reactions: No Known Allergies Allergy (Verified 11/30/18 14:40) Past Medical History - General Information source: Patient - Social History Smoking Status: Current Every Day Smoker Frequency of alcohol use: Occasional Drug Abuse: None Family History: Reviewed & Not Pertinent Patient has suicidal ideation: No Patient has homicidal ideation: No Neurological Medical History: Reports: Hx Migraine Renal/ Medical History: Denies: Hx Peritoneal Dialysis Past Surgical History: Reports: Hx Oral Surgery, Hx Orthopedic Surgery - Immunizations Immunizations up to date: Yes Hx Diphtheria, Pertussis, Tetanus Vaccination: Yes - 2010 Review of Systems - Review of Systems Constitutional: denies: Chills, Fever Cardiovascular: denies: Chest pain, Palpitations Respiratory: denies: Cough, Short of breath - Patient -: Yes All other systems reviewed and negative Physical Exam - Vital signs Vitals: Temp Pulse Resp BP Pulse Ox 99.7 F 87 20 142/96 H 99 01/10/19 17:42 01/10/19 17:42 01/10/19 17:42 01/10/19 17:42 01/10/19 17:42 Interpretation: Normal - General General appearance: Appears well, Alert - HEENT Head: Atraumatic, Other - Patient has an indurated tender area adjacent to the right corner of the mouth. There is some pus draining from the wound. It is consistent with an abscess. Eyes: Normal Pupils: PERRL - Respiratory Respiratory status: No respiratory distress Chest status: Nontender Breath sounds: Normal Chest palpation: Normal - Cardiovascular Rhythm: Regular Heart sounds: Normal auscultation Murmur: No - Abdominal Inspection: Normal Distension: No distension Bowel sounds: Normal Tenderness: Nontender Organomegaly: No organomegaly - Back Back: Normal, Nontender - Extremities General upper extremity: Normal inspection, Nontender, Normal color, Normal ROM, Normal temperature General lower extremity: Normal inspection, Nontender, Normal color, Normal ROM, Normal temperature, Normal weight bearing. No: Fatuma's sign - Neurological Neuro grossly intact: Yes Cognition: Normal Orientation: AAOx4 [place] Coma Scale Eye Opening: Spontaneous [place] Coma Scale Verbal: Oriented [place] Coma Scale Motor: Obeys Commands Anabell Coma Scale Total: 15 Speech: Normal Motor strength normal: LUE, RUE, LLE, RLE Sensory: Normal - Psychological Associated symptoms: Normal affect, Normal mood - Skin Skin Temperature: Warm Skin Moisture: Dry Skin Color: Other - Normal except as noted above. Irregularity with: Swelling, Tenderness, Warmth Course - Re-evaluation Re-evalutation: 01/10/19 20:09 Patient presents with a large indurated area on the right face. Is consistent with an abscess. There is no evidence of systemic illness. - Vital Signs Vital signs: Temp Pulse Resp BP Pulse Ox 99.7 F 87 20 142/96 H 99 01/10/19 17:42 01/10/19 17:42 01/10/19 17:42 01/10/19 17:42 01/10/19 17:42 Procedures - Incision and Drainage Right Face Time completed: 20:10 Type: Single Anesthetic type: 1% Lidocaine w/epi mL's of anesthetic: 2 Blade size: 11 I&D procedure: Iodoform packing placed, Sterile dressing applied Incision Method: Incision made by scalpel Notes: 01/10/19 20:12 Approximately 3 cc of yellow-green pus was drained from the wound Discharge - Discharge Clinical Impression: Facial abscess Condition: Stable Disposition: HOME, SELF-CARE Instructions: Abscess ([facility]), Cephalexin ([facility]), Trimethoprim-Sulfa ([facility]), Oral Narcotic Medication ([facility]), Post Incision and Drainage, MRSA Cellulitis ([facility]) Additional Instructions: Please return in 48 hours for a recheck of your abscess. Please return sooner if problems with fevers, increasing pain, or any other concerns. Prescriptions: Cephalexin Monohydrate [Keflex 500 mg Capsule] 500 mg PO QID 7 Days #28 capsule Hydrocodone/Acetaminophen [[place] 5-325 mg Tablet] 1 tab PO Q6 PRN 3 Days #12 tablet PRN Reason: Sulfamethoxazole/Trimethoprim [Septra-Ds 800-160 mg Tablet] 1 tab PO BID 7 Days #14 tablet Forms: Return to Work Referrals: ALEKSANDRA NUÑEZ MD [ACTIVE STAFF] - Follow up in 3-5 days
== END 2019-01-10 20:28 | disposition home or self-care (01) ==
LOC: ER 17:33
DX: L02.01 Cutaneous abscess of face (principal); R51 Headache; F17.200 Nicotine dependence, unspecified, uncomplicated; Z23 Encounter for immunization
CPT/HCPCS: 90715; 10060; A6266; J3490; 90471; 99283

== ENCOUNTER 2019-01-12 11:30 | Emergency (ER) | payer SELFPAY ==
[2019-01-12 11:35] VITALS: BP 149/87
[2019-01-12] MEDS ORDERED: LIDOCAINE 1% INJ (10 MG/ML) 10 ML MDV ONE (11:41)
[2019-01-12] MEDS ORDERED: LIDOCAINE 1% INJ-PF (10 MG/ML) 30 ML SDV INFIL ONE (11:41)
--- NOTE | 2019-01-12 14:14 | Operative Report ---
Operative Report DATE OF SURGERY: 01/12/19 PREOPERATIVE DIAGNOSIS: abscess right facial area POSTOPERATIVE DIAGNOSIS: same OPERATION: Incision and drainage abscess right side of face SURGEON: MEGHAN CATALAN ANESTHESIA: Local TISSUE REMOVED OR ALTERED: purulent material COMPLICATIONS: none ESTIMATED BLOOD LOSS: 1cc QUANTITATIVE BLOOD LOSS: 1 INTRAOPERATIVE FINDINGS: abscess right face PROCEDURE: Patient placed in supine position on ER strecher and the right side of face close to the edge of the mouth was then prepped and draped in the usual sterile fashion. Local anesthesis over the abscess site where it was initially drained but appears incomplete. An incision made over the skin between what appears to be 2 small incisions. The opening made bigger to about 1.5 cm. The purulent material was then debride and some specimen sent for C/S. The cavity was then packed with iodoform gauze. A dry 4x4 dressing was then placed over and tape. Tolerated procedure well. Discharged from ED by ED PA with po antibiotics to be followed back in ED in 24-48 hrs for removal of packing and hopefully get a final C/S result.
== END 2019-01-12 13:20 | disposition home or self-care (01) ==
LOC: ER 11:30
DX: L02.01 Cutaneous abscess of face (principal)
CPT/HCPCS: 87070; 87205; 87077; 87186; 10060; A6266; 99283; J3490

== ENCOUNTER 2019-01-14 11:54 | Emergency (ER) | payer SELFPAY ==
[2019-01-14 12:07] VITALS: BP 148/92
--- NOTE | 2019-01-14 12:20 | ER Document Report ---
HPI - HPI Patient complains to provider of: wound recheck Time Seen by Provider: 01/14/19 12:08 Onset: Last week Onset/Duration: Better Quality of pain: No pain Severity: None Pain Level: Denies Context: 43-year-old male presented to the ED on Thursday with a sore to the right side of his face. They I&D did on Thursday and then he came back on Thursday and they had the surgery and remove the cyst from the area. The surgeon packed it with gauze and told him to come back in 2448 hrs. to have the gauze removed. I have remove the gauze today and the site looks clear at this time. Patient has been sent home with some flushes and gauze to change the dressing 3 times a day for the next 2 days. He is to return for any increase in pain swelling or drainage. Associated Symptoms: None Exacerbated by: Denies Relieved by: Denies Similar symptoms previously: Yes Recently seen / treated by doctor: Yes - ROS ROS below otherwise negative: Yes - CONSTITUTIONAL Constitutional: DENIES: Fever, Chills - EENT EENT: DENIES: Sore Throat, Ear Pain, Nasal Drainage-Clear, Nasal Drainage- Purulent, Congestion, Eye problems - NEURO Neurology: DENIES: Headache, Weakness, Vision blurred, Dizzinesss / Vertigo - CARDIOVASCULAR Cardiovascular: DENIES: Chest pain - RESPIRATORY Respiratory: DENIES: Trouble Breathing, Coughing - GASTROINTESTINAL Gastrointestinal: DENIES: Abdominal Pain, Nausea, Patient vomiting, Diarrhea, Constipation, Black / Bloody Stools - URINARY Urinary: DENIES: Dysuria, Urgency, Frequency - REPRODUCTIVE Reproductive: DENIES: :, Postmenopausal, Abnormal bleeding / discharge Past Medical History - Social History Smoking Status: Current Every Day Smoker Chew tobacco use (# tins/day): No Frequency of alcohol use: Rare Drug Abuse: None Family History: Reviewed & Not Pertinent Patient has suicidal ideation: No Patient has homicidal ideation: No Neurological Medical History: Reports: Hx Migraine Renal/ Medical History: Denies: Hx Peritoneal Dialysis Past Surgical History: Reports: Hx Oral Surgery, Hx Orthopedic Surgery - Immunizations Immunizations up to date: Yes Hx Diphtheria, Pertussis, Tetanus Vaccination: Yes - 2011 Vertical Provider Document - CONSTITUTIONAL Agree With Documented VS: Yes Exam Limitations: No Limitations, Clinical Condition General Appearance: WD/WN, No Apparent Distress - INFECTION CONTROL TRAVEL OUTSIDE OF THE [place] IN LAST 30 DAYS: No - HEENT HEENT: Atraumatic, Normal ENT Exam, PERRLA. negative: Normocephalic Notes: Open abscess to right cheek reassessed. Packing was removed. Site is clean no drainage. - NECK Neck: Normal Inspection, Supple, Thyroid Normal - RESPIRATORY Respiratory: Breath Sounds Normal, No Respiratory Distress, Chest Non-Tender - CARDIOVASCULAR Cardiovascular: Regular Rate, Regular Rhythm, No Murmur - GI/ABDOMEN Gastrointestinal: Abdomen Soft, Abdomen Non-Tender, No Organomegaly, Normal Bowel Sounds - BACK Back: Normal Inspection - MUSCULOSKELETAL/EXTREMETIES Musculoskeletal/Extremeties: MAEW, FROM, Non-Tender - NEURO Level of Consciousness: Awake, Alert, Appropriate Deep Tendon Reflexes: 2+ - DERM Integumentary: Abscess - Recheck abscess. Packing was removed from site. Wound is healing well. Minimal drainage noted. Site was irrigated with saline. Patient was given instructions for care of wound and patient was discharged home. Course - Vital Signs Vital signs: Temp Pulse Resp BP Pulse Ox 98.3 F 69 16 148/92 H 100 01/14/19 12:06 01/14/19 12:06 01/14/19 12:06 01/14/19 12:06 01/14/19 12:06 Discharge - Discharge Clinical Impression: Encounter for wound re-check Condition: Stable Disposition: HOME, SELF-CARE Instructions: Family Physicians / Practices Additional Instructions: You were seen today for wound recheck to the abscess to your face. The culture did come back as methicillin-resistant staph aureus or MRSA. The Septra that you are taken the bacteria is susceptible and should take care of the rest of the infection. Please irrigate the wound 3 times a day as I have instructed you and change her dressing 3 times a day. Please return to the ED immediately for any increase in swelling drainage foul odor or pain. FOLLOW-UP CARE: If you have been referred to a physician for follow-up care, call the physicians office for an appointment as you were instructed or within the next two days. If you experience worsening or a significant change in your symptoms, notify the physician immediately or return to the Emergency Department at any time for re-evaluation. Forms: Elevated Blood Pressure, Smoking Cessation Education, Return to Work
== END 2019-01-14 12:30 | disposition home or self-care (01) ==
LOC: ER 11:54
DX: Z48.01 Encounter for change or removal of surgical wound dressing (principal); L02.01 Cutaneous abscess of face; F17.200 Nicotine dependence, unspecified, uncomplicated
CPT/HCPCS: 99282

== ENCOUNTER 2019-08-16 13:08 | Emergency (ER) | payer SELFPAY ==
[2019-08-16] MEDS ORDERED: ONDANSETRON HCL INJ/PF 4 MG/2 ML SDV IV ONE (13:35)
[2019-08-16] MEDS ORDERED: NORMAL SALINE 1000 ML 1,000 ML IV PRN (13:35)
--- NOTE | 2019-08-16 14:02 | ER Document Report ---
ED GI/ - General Chief Complaint: Nausea/Vomiting/Diarrhea Stated Complaint: NAUSEA/VOMITING/DIARRHEA Time Seen by Provider: 08/16/19 13:19 Primary Care Provider: [facility] [Provider Group] - Follow up as needed [facility] [Provider Group] - Follow up as needed [facility] [Provider Group] - Follow up as needed Mode of Arrival: Medic Information source: Patient Notes: 44-year-old male presented to ED for complaint of nausea vomiting generalized bellyache and back pain. He states he has had the pain since Thursday. He states he was discharged [facility]. He states he was told by his counselor that a staff member had positive COVID testing and that he needed to self isolate for 14 days. He is alert oriented respirations regular and unlabored speaking in full sentences skin is warm to touch. He is able to walk with no difficulty. He does smoke half pack a day since he got out of the substance abuse center and has not had anything to drink or any type of illicit drugs. TRAVEL OUTSIDE OF THE [place] IN LAST 30 DAYS: No - HPI Patient complains to provider of: Abdominal pain, Vomiting Onset: Other - Thursday Timing/Duration: Intermittent Quality of pain: Cramping, Sharp Severity at maximum: Severe Severity in ED: Severe Pain Level: 5 Location: Other - Generalized abdominal pain low back pain. He states he always has low back pain. Associated symptoms: Nausea, Vomiting, Other - Body aches hot and cold chills Exacerbated by: Movement, Food Relieved by: Denies Similar symptoms previously: Yes Recently seen / treated by doctor: Yes - Related Data Allergies/Adverse Reactions: No Known Allergies Allergy (Verified 11/30/18 14:40) Past Medical History - General Information source: Patient - Social History Smoking Status: Current Every Day Smoker Cigarette use (# per day): Yes - 1/3 pack/day Smoking Education Provided: Yes - 4 minutes Frequency of alcohol use: None Drug Abuse: None, Other - Discharge from substance abuse center for cocaine on 08/12/2019 Lives with: Alone Family History: Reviewed & Not Pertinent Patient has homicidal ideation: No - Past Medical History Cardiac Medical History: Reports: None Pulmonary Medical History: Reports: None EENT Medical History: Reports: None Neurological Medical History: Reports: Hx Migraine Endocrine Medical History: Reports: None Renal/ Medical History: Reports: None Malignancy Medical History: Reports None GI Medical History: Reports: None Musculoskeletal Medical History: Reports Hx Musculoskeletal Trauma - Right middle finger amputated traumatically Skin Medical History: Reports None Psychiatric Medical History: Reports: None Traumatic Medical History: Reports: None Infectious Medical History: Reports: None Past Surgical History: Reports: Hx Oral Surgery, Hx Orthopedic Surgery - Immunizations Immunizations up to date: Yes Hx Diphtheria, Pertussis, Tetanus Vaccination: Yes - 2010 Review of Systems - Review of Systems Constitutional: Chills, Recent illness EENT: No symptoms reported Cardiovascular: No symptoms reported Respiratory: No symptoms reported Gastrointestinal: Abdominal pain, Nausea, Vomiting Genitourinary: No symptoms reported Male Genitourinary: No symptoms reported Musculoskeletal: No symptoms reported Skin: No symptoms reported Hematologic/Lymphatic: No symptoms reported Neurological/Psychological: No symptoms reported -: Yes All other systems reviewed and negative Physical Exam - Vital signs Vitals: Temp 98.8 F 08/16/19 13:09 Interpretation: Normal - General General appearance: Appears well, Alert - HEENT Head: Normocephalic, Atraumatic Eyes: Normal Pupils: PERRL - Respiratory Respiratory status: No respiratory distress Chest status: Nontender Breath sounds: Normal Chest palpation: Normal - Cardiovascular Rhythm: Regular Heart sounds: Normal auscultation Murmur: No - Abdominal Inspection: Normal Distension: No distension Bowel sounds: Hyperactive Tenderness: Tender Organomegaly: No organomegaly - Back Back: Normal, Nontender - Extremities General upper extremity: Normal inspection, Nontender, Normal color, Normal ROM, Normal temperature General lower extremity: Normal inspection, Nontender, Normal color, Normal ROM, Normal temperature, Normal weight bearing. No: Fatuma's sign - Neurological Neuro grossly intact: Yes Cognition: Normal Orientation: AAOx4 [place] Coma Scale Eye Opening: Spontaneous [place] Coma Scale Verbal: Oriented [place] Coma Scale Motor: Obeys Commands [place]ell Coma Scale Total: 15 Speech: Normal Motor strength normal: LUE, RUE, LLE, RLE Sensory: Normal - Psychological Associated symptoms: Normal affect, Normal mood - Skin Skin Temperature: Warm Skin Moisture: Dry Skin Color: Normal Course - Re-evaluation Re-evalutation: 08/16/19 23:04 Patient was treated with 2 L of normal saline and Zofran for his nausea vomiting and diarrhea. He was also tested for the COVID virus as he is stated that he was in a drug treatment facility where he states someone was tested positive for the COVID virus. He states he felt very much better before being discharged. He was discharged home with prescription for antinausea medicine and instructed on home quarantine. Patient verbalized understanding and agreement with treatment plan and patient was discharged home. - Vital Signs Vital signs: Temp Pulse Resp BP Pulse Ox 98.3 F 59 L 16 123/65 98 08/16/19 17:48 08/16/19 17:48 08/16/19 17:48 08/16/19 17:48 08/16/19 17:48 - Laboratory Result Diagrams: 08/16/19 12:35 08/16/19 12:35 Laboratory results interpreted by me: 08/16/19 12:35 Carbon Dioxide 32 H Anion Gap 3 L Creatinine 1.32 H Est GFR (MDRD) Non-Af 58 L Discharge - Discharge Clinical Impression: Nausea vomiting and diarrhea, covid pui Condition: Stable Disposition: HOME, SELF-CARE Additional Instructions: VOMITING: Vomiting (or nausea without vomiting) can be caused by many other different problems. It can mean that something's wrong with the stomach, such as ulcers or inflammation or the intestinal tract, such as appendicitis. But it can also be a symptom of a problem that has nothing to do with the stomach or intestines. Vomiting is common with severe headaches, earaches, tonsillitis, and kidney infections, etc. We see it with pneumonia or heart attacks. Drugs can cause nausea and vomiting. Many abdominal problems cause vomiting; for example, gallstones, kidney stones, pancreatitis, and intestinal obstruction (blocked bowels). In most cases, curing the vomiting depends on fixing the problem that caused it. For temporary relief, we may use an anti-nausea medicine. For home use, we can prescribe suppositories, chewable pills, pills that dissolve in the mouth, or liquid anti-nausea drugs. If the vomiting seems to be caused by a problem in the stomach, acid-suppressing drugs may be prescribed as well. It's important to avoid dehydration. Sip small amounts of clear liquids (soft drinks, tea, broth, etc) . Try to take fluids frequently even if you are vomiting to prevent dehydration. Take increasing amounts of fluid and when liquids are being consumed successfully, advance to small amounts of bland food (toast, soups, mashed potatoes, etc.) until you are able to resume a regular diet. Avoid aspirin, tobacco, and alcohol. If the vomiting worsens, if the problem that's making you vomit worsens, or if there's evidence of bleeding in the stomach (such as black, tarry stool, or bloody or black vomit), you should return immediately. Also, return if abdominal pain worsens or becomes localized to one area or you develop high fever. Call your doctor if you aren't improved in 24 hours. DIARRHEA, NON-SPECIFIC: Diarrhea means frequent, watery stools. There are many causes. Any problem that keeps the intestinal tract from absorbing water from the stool can lead to diarrhea. A sudden new diarrhea problem is usually caused by a virus, food sensitivity, toxic bacteria, or drugs. In this case, we expect the problem to go away soon. Testing is done only if you seem seriously ill from the diarrhea. If you have chronic diarrhea, or diarrhea that keeps coming back, we need to find out why. Chronic diarrhea can be due to inflammation of the bowels such as Crohn's disease or ulcerative colitis, food sensitivity such as intolerance to lactose or wheat protein, irritable bowel syndrome, and other problems. If yo ur diarrhea is a significant problem but it's not clear why you have it, we'll refer you to a specialist for further testing. During an episode of diarrhea, drink small amounts (two to six ounces) of clear liquids (soft drinks, sport drinks, herb teas, broth, etc). Take fluids frequently to prevent dehydration. It's usually not a problem to take mild anti- diarrhea medication such as Kaopectate or Pepto-Bismol. As the diarrhea eases, advance to small amounts of bland food (mashed potato, toast) for 24 hours. Call the physician if blood appears in your vomit or stool, if vomiting lasts longer than 24 hours, if the abdominal pain worsens or becomes localized to one area, if you develop high fever, or if you become lightheaded and weak. VIRAL SYNDROME: The physician has diagnosed a viral infection. Viruses not only cause "colds," but can cause many different symptoms including generalized aching, fever, headache, cough, diarrhea, nausea, vomiting, and fatigue. The treatment, for the most part, is simply relief of symptoms. This means that antibiotics are usually not given. Rest, fluids, pain medications and, occasionally, medication for the specific symptoms that are most bothersome will be prescribed. Use good handwashing to avoid passing the virus to others. Shared toys should be cleaned with disinfectant. Clean the toilets, sinks, and counter surfaces in bathrooms. Launder clothing in hot water. Contact the physician if you develop any new or unusual symptoms such as severe headache, stiff neck, high fever, chest pain, productive cough, or short ness of breath. You should be rechecked if you don't see marked improvement within seven to 10 days. INTRAVENOUS (I V) FLUIDS: As part of your care today, you received intravenous (IV) fluids. IV fluids are administered to patients who are dehydrated or to those who have certain chemical (electrolyte) abnormalities that need correcting. ANTINAUSEA MEDICATION: You have been given a medication to suppress nausea and vomiting. This type of medication can be given as a shot, pill, or suppository. It will usually last for many hours. Pills and shots usually last six to eight hours. For the typical illness, only one or two doses of the medication may be necessary. Mild lightheadedness may occur. This type of medicine can cause drowsiness. Do not drive or operate dangerous machinery while under its influence. Do not mix with alcohol. See your doctor at once if you have muscle spasms or tightness, or uncontrollable motions (particularly of the neck, mouth, or jaw). Persistent vomiting or severe lightheadedness should also be evaluated by the physician. Patient was provided with discharge information including: As a person under investigation for Covid 19, the [place] department of Health and Human Services, division of public health advises you to adhere to the following guidance until your test results are reported to you. If your test result is positive, you will receive additional information from your provider and your local health department at that time. Remain at home until you are cleared by the health provider or public health aut horities. Keep a log of visitors to your home, notify any visitors to your home of your isolation status. If you plan to move to a new address or leave the [facility], notify the local health department in your County. Call your doctor or seek care if you have an urgent medical need. Before seeki ng medical care, call ahead to get instructions from the provider before arriving at the medical office clinic or hospital. Notify them that you are being tested for the virus that causes Covid 19 so that arrangements can be made, as necessary, to prevent transmission to others in the healthcare setting. Next, notify the local health department in your county. If a medical emergency arises and you need to call 911, inform the first responders that you are being tested for the virus that causes Covid 19. Next, notify the local health department in your county. FOLLOW-UP CARE: If you have been referred to a physician for follow-up care, call the physicians office for an appointment as you were instructed or within the next two days. If you experience worsening or a significant change in your symptoms, notify the physician immediately or return to the Emergency Department at any time for re-evaluation. Prescriptions: Ondansetron [Zofran Odt 4 mg Tablet] 4 mg PO Q6HP PRN #14 tab.rapdis PRN Reason: Forms: Elevated Blood Pressure, Smoking Cessation Education Referrals: [facility] [Provider Group] - Follow up as needed [facility] [Provider Group] - Follow up as needed [facility] [Provider Group] - Follow up as needed
[2019-08-16 14:28] LABS: ABSOLUTE EOSINOPHILS # (AUTO) 0.2 10^3/uL (0.0-0.6); ABSOLUTE LYMPHOCYTES (AUTO) 1.6 10^3/uL (0.5-4.7); ABSOLUTE MONOCYTES (AUTO) 0.4 10^3/uL (0.1-1.4); ABSOLUTE NEUT (AUTO) 4.2 10^3/uL (1.7-8.2); BASOPHILS % (AUTO) 0.3 % (0-2); EOSINOPHILS % (AUTO) 2.8 % (0-6); HEMATOCRIT 47.4 % (37.9-51.0); LYMPHOCYTES % (AUTO) 24.6 % (13-45); MEAN CORPUSCULAR HEMOGLOBIN 31.3 pg (27.0-33.4); MEAN CORPUSCULAR HGB CONC 33.7 g/dL (32.0-36.0); MEAN CORPUSCULAR VOLUME 93 fl (80-97); MONOCYTES % (AUTO) 6.3 % (3-13); PLATELET COUNT 186 10^3/uL (150-450); RED CELL DISTRIBUTION WIDTH 12.8 % (11.5-14.0); TOTAL CELLS COUNTED % (AUTO) 100 %; WHITE BLOOD COUNT 6.4 10^3/uL (4.0-10.5)
[2019-08-16 14:53] LABS: ALBUMIN 3.9 g/dL (3.5-5.0); ALKALINE PHOSPHATASE 52 U/L (38-126); ASPARTATE AMINO TRANSFERASE 24 U/L (17-59); BILIRUBIN,TOTAL 0.4 mg/dL (0.2-1.3); BLOOD UREA NITROGEN 14 mg/dL (7-20); CALCIUM 9.3 mg/dL (8.4-10.2); GLUCOSE 102 mg/dL (75-110); POTASSIUM 3.7 mmol/L (3.6-5.0); TOTAL PROTEIN 6.7 g/dL (6.3-8.2)
[2019-08-16 14:58] LABS: CARBON DIOXIDE 32 mmol/L (22-30); CHLORIDE 103 mmol/L (98-107)
[2019-08-16 14:59] LABS: ANION GAP 3 (5-19)
[2019-08-16 16:35] LABS: APPEARANCE,URINE CLEAR; BILIRUBIN,URINE NEGATIVE (NEGATIVE); COLOR,URINE YELLOW; GLUCOSE, URINE NEGATIVE (NEGATIVE); KETONES,URINE NEGATIVE (NEGATIVE); LEUKOCYTE ESTERASE,URINE NEGATIVE (NEGATIVE); NITRITE,URINE NEGATIVE (NEGATIVE); PROTEIN,URINE NEGATIVE (NEGATIVE); URINE SPECIFIC GRAVITY 1.018; UROBILINOGEN,URINE NEGATIVE mg/dL (<2.0)
[2019-08-16 23:06] VITALS: BP 123/65
== END 2019-08-16 18:06 | disposition home or self-care (01) ==
LOC: ER 13:08
DX: R11.2 Nausea with vomiting, unspecified (principal); R10.84 Generalized abdominal pain; R10.819 Abdominal tenderness, unspecified site; M54.5 Low back pain; F17.210 Nicotine dependence, cigarettes, uncomplicated; R68.83 Chills (without fever); Z20.828 Contact with and (suspected) exposure to other viral communicable diseases
CPT/HCPCS: 99406; 99284; 96361; 96374; 36415; 85025; 87635; 80053; 81001; J2405; J7030